=== PATIENT | male | born 1955 | race Caucasian/White ===

== ENCOUNTER → 2020-02-16 | Outpatient (CLI) | payer MEDICARE ==
--- NOTE | 2020-02-16 19:21 | CT ---
EXAMINATION TYPE: CT pelvis wo con DATE OF EXAM: 02/16/2020 COMPARISON: None. HISTORY: severe pain right hip right leg and lower\pelvis. CT DLP: 681 mGycm Automated exposure control for dose reduction was used. FINDINGS: Posterior interpedicular rods and screws L4-S1 level are identified bilaterally. There is some ossifi c fusion of the lateral and anterior aspect at these levels. Alignment stable and satisfactory. Osseous structures are somewhat demineralized. Metallic hardware from total right hip arthroplasty is also satisfactory in position. Right lateral acetabular screw does break posterior right lateral cor jeremiah of the acetabulum. No suspicious surrounding lucency. Mild to moderate narrowing with moderate acetabular spurring in the left hip joint. Pubic symphysis i ntact. Asymmetric sclerosis and spurring of the superior left sacroiliac joint greater than right side. Asymmetric mild to moderate right paraspinal muscular atrophy noted. No suspicious bowel dilatation. Scattered pelvic phleboliths. No concerning pelvic fluid collection o r adenopathy. Muscle bulk maintained. IMPRESSION: As above.
== END | disposition home or self-care (01) ==
LOC: RADCTMAIN 18:04
PROVIDERS: ATTEND Orthopaedic Surgery
DX: M62.58 Muscle wasting and atrophy, not elsewhere classified, other site (principal); M76.892 Other specified enthesopathies of left lower limb, excluding foot; Z96.641 Presence of right artificial hip joint
CPT/HCPCS: 72192

== ENCOUNTER 2022-05-16 07:19 | Day surgery (SDC) | payer MEDICARE ==
[~2022-05-16 07:19] MED LIST: GLYCOPYRROLATE 0.2 MG/ML 2 ML VIAL ONE; HYDROmorphone (PF) 1 MG/ML ONE; LACTATED RINGERS 1,000 ML IV SCH; LIDOCAINE 2% INJ 20 MG/ML (2 ML VIAL) ONE; MIDAZOLAM 2 MG/2 ML VIAL ONE; NEOSTIGMINE 1 MG/ML 10 ML VIAL ONE; PROPOFOL 10 MG/ML 20 ML VIAL IV ONE; ROCURONIUM 10 MG/ML (5 ML VIAL) IV ONE; SUCCINYLCHOLINE CHLORIDE 200 MG/10 ML VIAL IV ONE; fentaNYL (PF) 50 MCG/ML 2 ML AMP ONE
[2022-05-16 07:53] VITALS: RESP 16; TEMP 96.9
[2022-05-16] MEDS ORDERED: PROPOFOL 10 MG/ML 20 ML VIAL IV ONE (08:27)
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
--- NOTE | 2022-05-16 08:46 | P.OP ---
Date of Procedure: 05/16/22 Preoperative Diagnosis: Screening colonoscopy Postoperative Diagnosis: Internal and external hemorrhoids Procedure(s) Performed: Colonoscopy Anesthesia: MAC Surgeon: Shaheen Reyna Pathology: none sent Condition: stable Disposition: PACU Description of Procedure: The patient's placed on the endoscopy table in the lateral position. He received IV sedation. Digital rectal exam was performed. This revealed external and internal hemorrhoids. Flexible colonoscope was then placed patient anus and passed throughout the entire colon. The ileocecal valve was visualized. Cecum, ascending and transverse colon appeared normal. The descending and sigmoid colon appeared normal except for a few scattered diverticula. Scope was then brought back the rectum this appeared normal. Scope was withdrawn to anus and internal and external hemorrhoids are noted.
[2022-05-16 09:04] VITALS: BP 127/65; PULSE 54
== END 2022-05-16 09:40 | disposition home or self-care (01) ==
LOC: ORWHC2ENDO 07:19
PROVIDERS: ATTEND Surgery
DX: Z12.11 Encounter for screening for malignant neoplasm of colon (principal); K64.8 Other hemorrhoids; K64.4 Residual hemorrhoidal skin tags; K57.30 Diverticulosis of large intestine without perforation or abscess without bleeding; K21.9 Gastro-esophageal reflux disease without esophagitis; E78.5 Hyperlipidemia, unspecified; G47.33 Obstructive sleep apnea (adult) (pediatric); M19.90 Unspecified osteoarthritis, unspecified site; F17.200 Nicotine dependence, unspecified, uncomplicated; Z98.890 Other specified postprocedural states; Z90.49 Acquired absence of other specified parts of digestive tract; Z82.3 Family history of stroke; Z79.82 Long term (current) use of aspirin; Z79.899 Other long term (current) drug therapy; Z99.89 Dependence on other enabling machines and devices
CPT/HCPCS: J2250; J0330; J2710; J3010; J1170; J2704; J2001; G0121

== ENCOUNTER → 2023-01-25 | Outpatient (CLI) | payer OTHER, MEDICARE ==
--- NOTE | 2023-02-03 00:36 | MR ---
EXAMINATION TYPE: MR hip LT wo con DATE OF EXAM: 01/25/2023 COMPARISON: Outside radiograph 09/19/2020 HISTORY: 67-year-old male M25.552, left hip pain. TECHNIQUE: Multiplanar, multisequence images of the left hip were obtained without IV contrast. FINDINGS: Prominent susceptibility artifact at the right hip relating to previous arthroplasty. Additional ernestine fact at the lower lumbar spine and upper sacrum related to posterior fusion hardware. There is moderate degenerative change of the left hip with articular surface irregularity related to cartilage loss, marginal spurring, and small joint effusion. No hip fracture or AVN. Some degenerative spurring left SI joint. No suspicious bone marrow replacement. The bilateral hamstrings and left rectus femoris origins as well as the left gluteal and iliopsoas in sertions appear intact. Prostate gland enlargement 4.6 cm wide. Presacral edema. IMPRESSION: 1. Moderate left hip OA with small joint effusion likely reactive. No hip fracture or AVN. 2. Patient with previous right hip arthroplasty and lumbosacral fusion.
== END | disposition home or self-care (01) ==
LOC: RADMRIMAIN 14:00
PROVIDERS: ATTEND Orthopaedic Surgery
DX: M16.12 Unilateral primary osteoarthritis, left hip (principal); M25.452 Effusion, left hip; M43.27 Fusion of spine, lumbosacral region; Z96.641 Presence of right artificial hip joint

== ENCOUNTER → 2024-01-09 | Outpatient (CLI) | payer OTHER, MEDICARE ==
--- NOTE | 2024-03-23 20:14 | MR ---
EXAMINATION TYPE: MR right wrist without IV contrast DATE OF EXAM: 01/09/2024 COMPARISON: None HISTORY: Right wrist pain x3 months with limited movement, Repetitive wheelchair pushing for 34 yrs d ue to paralysis Standard multiplanar, multisequence MRI departmental protocol Multiplanar, multisequence images of the right wrist were acquired without contrast. FINDINGS: Technical limitations of the exam due to patient and coil positioning. Perforation of the central TFCC disc. Peripheral TFCC attachments are grossly intact. Meniscal homolo dick is somewhat obscured by artifact but appears grossly intact. Mild extensor carpe ulnaris tendinop athy with minimal tenosynovitis. Dorsal and ulnar radioulnar ligaments are intact. Diffuse thinning of the scapholunate ligament without definite tear. Lunotriquetral ligaments are int act. No extensor tendon tear or significant tenosynovitis. Mild flexor carpi radialis tenosynovitis. Remaining flexor tendons are intact. Ulnar nerve is within normal limits. Negative for acute fracture or marrow replacement. Mild scattered degenerative changes throughout the carpus. Mild degenerative cysts versus erosions within the capitate, hamate and base of the fourth o f the carpal. Moderate distal radioulnar joint effusion. Mild dorsal subluxation of the ulna at the radial ulnar ros int. Small pisotriquetral ganglion inferiorly measuring 13 x 6 mm. IMPRESSION: 1. Perforation of the central TFCC disc. Moderate distal radial ulnar joint effusion. Mild dorsal sub luxation of the distal ulna. Mild ECU tendinopathy. 2. Mild flexor carpi radialis tenosynovitis. 3. Mild scattered degenerative changes throughout the carpus. Several small degenerative cysts versus erosions as above. 4. Small pisotriquetral ganglion. [facility], , 03/23/2024 8:12 PM
== END | disposition home or self-care (01) ==
LOC: RADMRIMAIN 15:24
PROVIDERS: ATTEND Family Medicine
DX: M12.531 Traumatic arthropathy, right wrist

== ENCOUNTER → 2024-10-14 | Outpatient (CLI) | payer MEDICARE ==
--- NOTE | 2024-10-14 15:07 | CT ---
EXAMINATION TYPE: CT abdomen pelvis wo con CT DLP: 1050 mGycm, Automated exposure control for dose reduction was used. DATE OF EXAM: 10/14/2024 11:52 AM COMPARISON: CT pelvis 02/16/2020, MR left hip 01/25/2023 CLINICAL INDICATION:Male, 69 years old with history of K62.5 HEMORRHAGE ANUS OR [id number] K57.92; rectal bleeding TECHNIQUE: Standard CT of the abdomen and pelvis following the administration of oral contrast. Cor onal and sagittal reformats were performed. FINDINGS: Evaluation is limited due to lack of intravenous contrast. LOWER CHEST: No significant findings. ABDOMEN LIVER: Unremarkable noncontrast appearance GALLBLADDER AND BILE DUCTS: Unremarkable noncontrast appearance PANCREAS: Unremarkable noncontrast appearance SPLEEN: Unremarkable noncontrast appearance ADRENAL GLANDS: Unremarkable noncontrast appearance. KIDNEYS AND URETERS: No evidence of hydronephrosis or renal calculus. PELVIS BLADDER: Grossly unremarkable. Limited evaluation due to streak artifact from right hip prosthesis. REPRODUCTIVE: Grossly unremarkable. Limited evaluation due to streak artifact from right hip prosthes is. ABDOMEN & PELVIS STOMACH AND BOWEL: Small hiatal hernia, duodenum is unremarkable. Enteric contrast reaches the proxim al transverse colon. Multiple bowel sathish present within the colon. No focal bowel wall thickening or surrounding inflammatory changes. No hyperdense material within the distal colon. No diverticulosi s. The appendix is not identified however no surrounding inflammatory changes and expected location. No evidence of bowel obstruction. PERITONEUM: No evidence of pneumoperitoneum or free fluid. VASCULATURE: Mild atherosclerotic calcifications are present throughout the abdominal aorta and its b ranches. No evidence of aortic aneurysm. MUSCULOSKELETAL: No acute osseous abnormalities. Postsurgical changes from right total hip arthroplas ty. Stable position of the hardware from prior exam. Additional postsurgical changes from posterior l umbosacral fusion with bilateral pedicle screws and rods involving L4-S1. Moderate multilevel degener ative disc disease with prominent anterior osteophytosis of the visualized thoracolumbar spine. Levos coliotic curvature of the lumbar spine. Degenerative changes of bilateral SI joints with anterior helene dging. Mild osteoarthritic changes of the left hip. LYMPH NODES: No gross evidence for lymphadenopathy. SOFT TISSUE/ABDOMINAL WALL: Unremarkable IMPRESSION: No CT evidence for acute abdominal/pelvic process within limitations of an nonintravenous contrast ex am. [facility], , 10/14/2024 3:05 PM
== END | disposition home or self-care (01) ==
LOC: RADCTMAIN 10:06
PROVIDERS: ATTEND Family Medicine
DX: K62.5 Hemorrhage of anus and rectum (principal); K57.31 Diverticulosis of large intestine without perforation or abscess with bleeding; K57.92 Diverticulitis of intestine, part unspecified, without perforation or abscess without bleeding
CPT/HCPCS: 74176